=== PATIENT | female | born 2000 | race African-American/Black ===

== ENCOUNTER 2021-03-14 17:55 | Emergency (ER) | payer OTHER ==
[~2021-03-14] VITALS: Ht 142.2 cm; Wt 54.4 kg
[2021-03-14 18:31] LABS: URINE BILIRUBIN NEGATIVE (Negative); URINE BLOOD 3+ (Negative); URINE CLARITY CLEAR; URINE COLOR YELLOW; URINE GLUCOSE-RANDOM NEGATIVE (Negative); URINE LEUKOCYTES-REFLEX NEGATIVE (Negative); URINE NITRITE-REFLEX NEGATIVE (Negative); URINE PROTEIN NEGATIVE (Negative); URINE SPECIFIC GRAVITY >= 1.030 (1.005-1.030); URINE UROBILINOGEN 0.2 E.U./dl (0.2-1.0)
[2021-03-14 18:38] LABS: URINE KETONES 3+ (Negative)
[2021-03-14 18:49] LABS: ABSOLUTE LYMPHOCYTES 1.1 thou/uL (0.8-5.3); ABSOLUTE MONOCYTES 0.3 thou/uL (0.0-1.2); ABSOLUTE NEUTROPHILS 1.7 thou/uL (1.6-8.1); BASOPHILS 0.9 %; EOSINOPHILS 1.1 %; HEMATOCRIT 40.4 % (37.0-47.0); HEMOGLOBIN 13.7 gm/dL (12.0-15.0); LYMPHOCYTES 34.4 %; MCH 27.6 pg (26.0-34.0); MCHC 33.9 g/dL (28.0-37.0); MCV 81.3 fL (80.0-100.0); MONOCYTES 9.6 %; MPV 7.9 fl. (7.2-11.1); NUCLEATED RBCS 0 /100WBC; PLATELET COUNT* 201 thou/uL (150-400); RBC 4.96 mil/uL (4.20-5.00); RDW-CV 14.7 % (10.5-14.5); WBC 3.1 thou/uL (4.0-11.0)
[2021-03-14 18:58] LABS: CASTS None Seen /LPF (None Seen); CRYSTALS None Seen /LPF (None Seen); MUCUS 4-6 Moderate strn/LPF (None Seen); SQUAMOUS >10 Many /LPF (0-3)
[2021-03-14 18:59] LABS: BACTERIA-REFLEX 1-9 Few /HPF (None Seen); URINE RBC 0-2 Rare /HPF (0-2); URINE WBC-REFLEX 0-5 Rare /HPF (0-5)
[2021-03-14 19:01] LABS: CALCIUM 9.4 mg/dL (8.5-10.1); CREATININE 0.8 mg/dL (0.6-1.3); POTASSIUM 4.1 mmol/L (3.5-5.1)
[2021-03-14 19:06] LABS: ALBUMIN 3.9 g/dL (3.4-5.0); TOTAL BILIRUBIN 0.2 mg/dL (<0.1-1.0); TOTAL PROTEIN 8.2 g/dL (6.4-8.2)
[2021-03-14 19:32] VITALS: BP 108/64
== END 2021-03-14 19:32 | disposition home or self-care (01) ==
LOC: M.ERS 17:55
PROVIDERS: Nurse Practitioner Family
DX: N93.9 Abnormal uterine and vaginal bleeding, unspecified (principal)

== ENCOUNTER 2021-07-23 00:59 | Emergency (ER) | payer OTHER ==
[~2021-07-23] VITALS: Ht 142.2 cm; Wt 56.2 kg
[2021-07-23] MEDS ORDERED: NORCO5 PO (02:10)
[2021-07-23] MEDS ORDERED: CRUTCHES MISCELL (02:11)
[2021-07-23 02:23] VITALS: BP 132/67
== END 2021-07-23 02:27 | disposition home or self-care (01) ==
LOC: M.ERS 00:59
DX: M25.461 Effusion, right knee (principal)

== ENCOUNTER 2021-08-04 13:01 | Emergency (ER) | payer OTHER ==
[~2021-08-04] VITALS: Ht 142.2 cm; Wt 54.4 kg
[~2021-08-04 13:01] MED LIST: CRUTCHES MISCELL; NORCO5 PO
[2021-08-04 14:10] LABS: INFLUENZA A ANTIGEN Negative (Negative); INFLUENZA B ANTIGEN Negative (Negative)
[2021-08-04] MEDS ORDERED: VENTOLIN HFA 1818 GM INH (14:50)
[2021-08-04] MEDS ORDERED: ZPAK PO (14:50)
[2021-08-04 14:56] VITALS: BP 124/68
[2021-08-04] MEDS ORDERED: ALBUTEROL2.5 MG/31 INH (14:56)
== END 2021-08-04 14:57 | disposition home or self-care (01) ==
LOC: M.ERS 13:01
PROVIDERS: Nurse Practitioner Family
DX: J18.9 Pneumonia, unspecified organism (principal); Z20.822 Contact with and (suspected) exposure to COVID-19